=== PATIENT | female | born 1965 | race Caucasian/White ===

== ENCOUNTER 2024-11-16 14:04 | Emergency (ER) | payer MEDICAID ==
[~2024-11-16] VITALS: Ht 165.1 cm; Wt 70.0 kg
[2024-11-16 14:06] VITALS: O2SAT 100
[2024-11-16] MEDS: IBUPROFEN 600MG TABLET PO ONE (17:33)
[2024-11-16] MEDS: TETANUS, DIPHTHERIA, PERTUSSIS VAC/PF 0.5ML (>10YR OLD) IM ONE (17:33)
[2024-11-16] MEDS: AMPICILLIN SOD/SULBACTAM NA 3 G in SODIUM CHLORIDE 0.9% 100 ML IV ONE (18:15)
[2024-11-16] MEDS: LIDOCAINE HCL 1% 20ML VIAL INFIL ONE (19:36)
[2024-11-16] MEDS ORDERED: AMOX1TAB16 MT (19:48)
[2024-11-16] MEDS ORDERED: IBUP-2029 MT (19:48)
[2024-11-16 20:40] VITALS: BP 159/89; PULSE 79; RESP 20; TEMP 37.11408; O2SAT 100
== END 2024-11-16 21:06 | disposition home or self-care (01) ==
LOC: ER 14:04 → EDBD 14:04 → ER 21:06
DX: S41.111A Laceration without foreign body of right upper arm, initial encounter (principal); S81.811A Laceration without foreign body, right lower leg, initial encounter; S41.141A Puncture wound with foreign body of right upper arm, initial encounter; S81.851A Open bite, right lower leg, initial encounter; W54.0XXA Bitten by dog, initial encounter; Y93.89 Activity, other specified; Y92.89 Other specified places as the place of occurrence of the external cause; Y99.8 Other external cause status
CPT/HCPCS: 81025; 73590; 90715; 12001; 90471; 96365; 99284; J0295; J3490; J7050; Z7610 ×2; 99283

== ENCOUNTER 2024-11-18 10:52 | Emergency (ER) | payer MEDICAID ==
[~2024-11-18] VITALS: Ht 162.6 cm; Wt 85.0 kg
[~2024-11-18 10:52] MED LIST: AMOX1TAB16 MT; IBUP-2029 MT
[2024-11-18 10:55] VITALS: O2SAT 98
[2024-11-18 11:08] VITALS: BP 142/72; PULSE 84; RESP 16; TEMP 98.5; O2SAT 100
== END 2024-11-18 13:32 | disposition home or self-care (01) ==
LOC: ER 10:52
DX: S51.851A Open bite of right forearm, initial encounter (principal); S91.351A Open bite, right foot, initial encounter; S91.051A Open bite, right ankle, initial encounter; Z48.00 Encounter for change or removal of nonsurgical wound dressing; W54.0XXA Bitten by dog, initial encounter; Y93.89 Activity, other specified; Y92.89 Other specified places as the place of occurrence of the external cause; Y99.8 Other external cause status
CPT/HCPCS: 99281

== ENCOUNTER 2024-12-01 09:30 | Emergency (ER) | payer MEDICAID ==
[~2024-12-01] VITALS: Ht 165.1 cm; Wt 85.0 kg
[2024-12-01 09:37] VITALS: BP 145/73; PULSE 80; RESP 16; TEMP 36.9; O2SAT 96; O2SAT 98
[2024-12-01] MEDS ORDERED: IBUP-2029 MT (09:55)
== END 2024-12-01 10:08 | disposition home or self-care (01) ==
LOC: ER 09:50
DX: S41.111D Laceration without foreign body of right upper arm, subsequent encounter (principal); X58.XXXD Exposure to other specified factors, subsequent encounter
CPT/HCPCS: 99282